=== PATIENT | female | born 1995 | race Caucasian/White ===

== ENCOUNTER 2018-02-20 07:48 | Outpatient (CLI) | payer BC ==
[2018-02-20] MEDS ORDERED: Iopamidol 370 76% 100 ML VIAL ONE (09:00)
--- NOTE | 2018-02-20 10:54 | CT ---
CT ABDOMEN AND PELVIS WITH ORAL AND IV CONTRAST: Date: 02/20/18 HISTORY: Left lower quadrant abdominal pain. FINDINGS: Imaging was performed during the excretory phase with suboptimal enhancement of the solid organs and inadequate evaluation. The lung bases are clear. No free air, free fluid, or lymphadenopathy is seen in the abdomen or pelvi s. No calcified gallstones are seen. There is normal contrast excretion by the kidneys into the urete rs and the urinary bladder. No hydroureteronephrosis is seen on either side. The small bowel loops ar e not abnormally dilated. A normal appearing appendix is seen. Uterus and ovaries are normal. No herrera colonic inflammatory change is seen, particularly in the left lower quadrant. IMPRESSION: Limited exam. Please see above. POS: ALICIA
== END 2018-02-20 07:49 | disposition home or self-care (01) ==
LOC: SCSCT 07:48
PROVIDERS: ATTEND Student in an Organized Health Care Education/Training Program
DX: R10.2 Pelvic and perineal pain (principal); G89.29 Other chronic pain
CPT/HCPCS: 74177